=== PATIENT | female | born 1995 | race Asian ===

== ENCOUNTER 2018-10-03 23:11 | Observation (INO) | payer OTHER ==
[~2018-10-03] VITALS: Ht 142.2 cm; Wt 52.2 kg
[2018-10-04 00:17] VITALS: BP 111/62
[2018-10-05] MEDS ORDERED: PREN1TAB80 PO (09:57)
== END 2018-10-04 01:40 | disposition home or self-care (01) ==
LOC: 4S 23:11
PROVIDERS: ADMIT Obstetrics & Gynecology; ATTEND Obstetrics & Gynecology
DX: O46.93 Antepartum hemorrhage, unspecified, third trimester (principal); O48.0 Post-term pregnancy; Z3A.40 40 weeks gestation of pregnancy
CPT/HCPCS: 81002; G0378 ×2

== ENCOUNTER 2018-10-05 09:05 | Inpatient (IN) | payer OTHER ==
[~2018-10-05] VITALS: Ht 144.8 cm; Wt 52.2 kg
[2018-10-05] MEDS ORDERED: RINGERS SOLUTION,LACTATED 1,000 ML IV PRN (09:14)
[2018-10-05] MEDS ORDERED: OXYTOCIN 30 UNITS/LACT RINGERS 500 ML IV ONE (09:14)
[2018-10-05] MEDS ORDERED: RINGERS SOLUTION,LACTATED 1,000 ML IV SCH (09:14)
[2018-10-05] MEDS ORDERED: CITRIC ACID/SODIUM CITRATE 30 ML SOLUTION UDCUP PO PRN (09:15)
[2018-10-05] MEDS ORDERED: LIDOCAINE/PF 1% 30 ML VIAL INJ PRN (09:15)
[2018-10-05] MEDS ORDERED: FentaNYL CITRATE-PF 100 MCG/2 ML VIAL IVP PRN (09:15)
[2018-10-05] MEDS ORDERED: METOCLOPRAMIDE HCL 5 MG/ML 2 ML VIAL IVP PRN (09:15)
[2018-10-05] MEDS ORDERED: PREN1TAB80 PO (09:57)
[2018-10-05] MEDS ORDERED: FentaNYL CITRATE-PF 100 MCG/2 ML VIAL ONE (10:19)
[2018-10-05] MEDS ORDERED: MIDAZOLAM HCL 2 MG/2 ML VIAL ONE (10:19)
[2018-10-05] MEDS ORDERED: MORPHINE SULFATE/PF 1 MG/ML 10 ML AMP ONE (10:20)
[2018-10-05] MEDS ORDERED: BUPIVACAINE HCL/DEX-WATER/PF 0.75% 2 ML AMP ONE (10:20)
[2018-10-05] MEDS ORDERED: KETOROLAC TROMETHAMINE 30 MG/ML VIAL ONE (10:20)
[2018-10-05] MEDS ORDERED: ONDANSETRON HCL 4 MG/2 ML VIAL ONE (10:20)
[2018-10-05] MEDS ORDERED: DEXAMETHASONE SOD PHOS 4 MG/ML VIAL ONE (10:20)
[2018-10-05 10:29] LABS: HEMATOCRIT 34.4 % (36-46); HEMOGLOBIN 11.4 g/dL (12.0-16.0); MEAN CORPUSCULAR HEMOGLOBIN 30.6 pg (26.0-34.0); MEAN CORPUSCULAR HGB CONC 33.3 G/dL (31.0-37.0); MEAN CORPUSCULAR VOLUME 92 fL (80-100); PLATELET COUNT (AUTO) 206 K/uL (150-450); RED BLOOD CELL COUNT(AUTO) 3.74 MIL/uL (4.00-5.20); RED CELL DISTRIBUTION WIDTH 15.6 % (11.5-14.5)
[2018-10-05 10:39] LABS: INR 0.9 (0.9-1.1); PROTHROMBIN TIME 9.3 SEC (9.4-11.6)
[2018-10-05 10:54] LABS: BAND NEUTROPHILS % (MANUAL) 15 % (0-5); LYMPHOCYTES % (MANUAL) 21 % (22-44); MONOCYTES % (MANUAL) 4 % (2-9); SEGMENTED NEUTROPHILS % 60 % (40-70)
[2018-10-05] MEDS ORDERED: METHYLERGONOVINE MALEATE 0.2 MG/ML VIAL IVP ONE (11:05)
[2018-10-05] MEDS ORDERED: GENTAMICIN 80 MG/NACL ISO-OSM 50 ML IV SCH (11:15)
[2018-10-05] MEDS ORDERED: METHYLERGONOVINE MALEATE 0.2 MG/ML VIAL ONE (11:16)
[2018-10-05] MEDS ORDERED: ONDANSETRON HCL 4 MG/2 ML VIAL IVP PRN ×2 (11:30→20:30)
[2018-10-05] MEDS ORDERED: DiphenhydrAMINE HCL 50 MG/ML VIAL IVP PRN ×2 (11:30→20:30)
[2018-10-05] MEDS ORDERED: OxyCODONE HCL/ACETAMINOPHEN 5-325 MG TABLET PO PRN ×2 (11:30→20:30)
[2018-10-05] MEDS ORDERED: MEPERIDINE-PF 25 MG/ML VIAL IVP PRN (11:30)
[2018-10-05] MEDS ORDERED: NALOXONE HCL 0.4 MG/ML VIAL IVP PRN ×2 (11:30→20:30)
[2018-10-05] MEDS ORDERED: HYDROmorphone 2 MG/ML SYRINGE IVP PRN (11:30)
[2018-10-05] MEDS ORDERED: ACETAMINOPHEN/CODEINE 300-30 MG TABLET PO PRN (11:45)
[2018-10-05] MEDS ORDERED: LANOLIN 7 GM OINTMENT TP PRN (11:45)
[2018-10-05] MEDS ORDERED: ACETAMINOPHEN 1000 MG/ISO-OSM 100 ML IV ONE ×2 (11:47→12:00)
[2018-10-05] MEDS ORDERED: RINGERS SOLUTION,LACTATED 1,000 ML IV ONE (11:48)
[2018-10-05] MEDS: AMPICILLIN SODIUM 2 GM/NS 100 ML IV SCH ×2 (11:59→18:08)
[2018-10-05] MEDS ORDERED: KETOROLAC TROMETHAMINE 30 MG/ML VIAL IVP SCH (12:00)
[2018-10-05] MEDS ORDERED: GENTAMICIN 120 MG/NACL ISO-OSM 100 ML IV ONE (12:30)
[2018-10-05] MEDS ORDERED: *CLINICAL-GENTAMICIN DOSING CLINICAL ONE (14:30)
[2018-10-05] MEDS: DEXTROSE 5%-0.45% SODIUM CHL 1,000 ML IV SCH ×2 (17:47→22:27)
[2018-10-05] MEDS ORDERED: OXYGEN THERAPY IH SCH ×3 (20:00)
[2018-10-05] MEDS: GENTAMICIN 100 MG/NACL ISO-OSM 50 ML IV SCH (21:27)
[2018-10-06] MEDS: AMPICILLIN SODIUM 2 GM/NS 100 ML IV SCH ×3 (00:11→11:49)
[2018-10-06] MEDS: KETOROLAC TROMETHAMINE 30 MG/ML VIAL IVP SCH ×2 (00:42→05:59)
[2018-10-06] MEDS: DEXTROSE 5%-0.45% SODIUM CHL 1,000 ML IV SCH ×2 (02:58→08:40)
[2018-10-06] MEDS ORDERED: IBUPROFEN 800 MG TABLET PO SCH (05:00)
[2018-10-06] MEDS: GENTAMICIN 100 MG/NACL ISO-OSM 50 ML IV SCH ×3 (05:16→21:45)
[2018-10-06 05:36] LABS: MEAN CORPUSCULAR HEMOGLOBIN 30.9 pg (26.0-34.0); MEAN CORPUSCULAR HGB CONC 32.8 G/dL (31.0-37.0); MEAN CORPUSCULAR VOLUME 94 fL (80-100); PLATELET COUNT (AUTO)-OB 177 K/uL (150-450); RED BLOOD CELL COUNT(AUTO) 2.67 MIL/uL (4.00-5.20); RED CELL DISTRIBUTION WIDTH 15.5 % (11.5-14.5)
[2018-10-06 05:53] LABS: ANION GAP 7 mmol/L (8-16); CALCIUM, TOTAL 8.3 mg/dL (8.8-10.5); CARBON DIOXIDE 22 mmol/L (22-29); CHLORIDE 108 mmol/L (98-107); CREATININE 0.61 mg/dL (0.60-1.30); GLOMERULAR FILTR. RATE CALC > 60 mL/min (>60); GLUCOSE,RANDOM 146 mg/dL (70-110); POTASSIUM 3.7 mmol/L (3.5-5.1); SODIUM SERUM 137 mmol/L (136-145); UREA NITROGEN, BLOOD 3 mg/dL (7-18)
[2018-10-06 06:22] LABS: HEMOGLOBIN 8.3 g/dL (12.0-16.0)
[2018-10-06 06:23] LABS: HEMATOCRIT 25.1 % (36-46)
[2018-10-06] MEDS ORDERED: OXYGEN THERAPY IH SCH (08:00)
[2018-10-06] MEDS: MAGNESIUM HYDROXIDE SUSPENSION 30 ML UDCUP PO SCH ×2 (08:42→20:59)
[2018-10-06] MEDS ORDERED: SOD FERRIC GLUC COMPLX/SUCROSE 125 MG in SODIUM CHLORIDE 0.9% 100 ML IV SCH (09:00)
[2018-10-06 09:48] LABS: BAND NEUTROPHILS % (MANUAL) 35 % (0-5); LYMPHOCYTES % (MANUAL) 12 % (22-44); MONOCYTES % (MANUAL) 1 % (2-9); SEGMENTED NEUTROPHILS % 52 % (40-70)
[2018-10-06] MEDS ORDERED: IBUPROFEN 600 MG TABLET PO SCH (12:00)
[2018-10-06] MEDS: IBUPROFEN 800 MG TABLET PO SCH ×2 (12:20→18:18)
[2018-10-06] MEDS: ACETAMINOPHEN/CODEINE 300-30 MG TABLET PO PRN (22:42)
[2018-10-07] MEDS: IBUPROFEN 800 MG TABLET PO SCH ×4 (00:31→20:59)
[2018-10-07 05:31] LABS: BASOPHILS % (AUTO) 0.2 % (0.0-2.0); EOSINOPHILS % (AUTO) 0.4 % (1.0-6.0); HEMOGLOBIN 8.6 g/dL (12.0-16.0); LYMPHOCYTES # (AUTO) 1.8 K/uL (1.0-4.8); LYMPHOCYTES % (AUTO) 12.8 % (22.0-44.0); MEAN CORPUSCULAR HEMOGLOBIN 30.8 pg (26.0-34.0); MEAN CORPUSCULAR HGB CONC 32.9 G/dL (31.0-37.0); MEAN CORPUSCULAR VOLUME 93 fL (80-100); MONOCYTES # (AUTO) 0.4 K/uL (0.1-1.0); MONOCYTES % (AUTO) 2.7 % (2.0-9.0); NEUTROPHILS # (AUTO) 11.5 K/uL (1.8-7.7); NEUTROPHILS % (AUTO) 83.9 % (40.0-70.0); PLATELET COUNT (AUTO)-OB 201 K/uL (150-450); RED BLOOD CELL COUNT(AUTO) 2.78 MIL/uL (4.00-5.20); RED CELL DISTRIBUTION WIDTH 15.8 % (11.5-14.5)
[2018-10-07] MEDS ORDERED: METOCLOPRAMIDE HCL 5 MG/ML 2 ML VIAL IVP ONE (05:47)
[2018-10-07] MEDS ORDERED: LIDOCAINE/PF 2% 5 ML VIAL IM ONE (05:47)
[2018-10-07] MEDS ORDERED: ONDANSETRON HCL 4 MG/2 ML VIAL IVP ONE (05:47)
[2018-10-07] MEDS ORDERED: EPHEDrine SULFATE 50 MG/ML VIAL IM ONE (05:47)
[2018-10-07] MEDS ORDERED: OXYTOCIN 10 UNITS/ML VIAL IM ONE (05:47)
[2018-10-07] MEDS ORDERED: ESMOLOL HCL 10 MG/ML 10 ML VIAL IVP ONE (05:47)
[2018-10-07] MEDS: MAGNESIUM HYDROXIDE SUSPENSION 30 ML UDCUP PO SCH (09:15)
[2018-10-07] MEDS: SOD FERRIC GLUC COMPLX/SUCROSE 125 MG in SODIUM CHLORIDE 0.9% 100 ML IV SCH (10:26)
[2018-10-07] MEDS: ACETAMINOPHEN/CODEINE 300-30 MG TABLET PO PRN ×2 (14:00→17:11)
[2018-10-08] MEDS: IBUPROFEN 800 MG TABLET PO SCH ×4 (03:08→17:50)
[2018-10-08] MEDS: SOD FERRIC GLUC COMPLX/SUCROSE 125 MG in SODIUM CHLORIDE 0.9% 100 ML IV SCH (10:08)
[2018-10-08] MEDS ORDERED: SODIUM CHLORIDE 0.9% 100 ML ONE (10:13)
[2018-10-08] MEDS ORDERED: IBUP-2071 PO (16:09)
[2018-10-08] MEDS ORDERED: DSS100 PO (16:11)
[2018-10-09] MEDS: IBUPROFEN 800 MG TABLET PO SCH ×3 (00:26→12:13)
[2018-10-09 05:53] LABS: BASOPHILS % (AUTO) 0.2 % (0.0-2.0); EOSINOPHILS % (AUTO) 1.7 % (1.0-6.0); HEMATOCRIT 30.1 % (36-46); LYMPHOCYTES # (AUTO) 1.7 K/uL (1.0-4.8); LYMPHOCYTES % (AUTO) 16.2 % (22.0-44.0); MEAN CORPUSCULAR HEMOGLOBIN 30.8 pg (26.0-34.0); MEAN CORPUSCULAR HGB CONC 33.1 G/dL (31.0-37.0); MEAN CORPUSCULAR VOLUME 93 fL (80-100); MONOCYTES # (AUTO) 0.7 K/uL (0.1-1.0); MONOCYTES % (AUTO) 6.1 % (2.0-9.0); NEUTROPHILS # (AUTO) 8.1 K/uL (1.8-7.7); NEUTROPHILS % (AUTO) 75.8 % (40.0-70.0); PLATELET COUNT (AUTO)-OB 303 K/uL (150-450); RED BLOOD CELL COUNT(AUTO) 3.24 MIL/uL (4.00-5.20); RED CELL DISTRIBUTION WIDTH 15.5 % (11.5-14.5)
[2018-10-09] MEDS: SOD FERRIC GLUC COMPLX/SUCROSE 125 MG in SODIUM CHLORIDE 0.9% 100 ML IV SCH (09:16)
[2018-10-09] MEDS ORDERED: FERR-89 PO (10:41)
== END 2018-10-09 12:30 | disposition home or self-care (01) | DRG 540 ==
LOC: 4S 09:05 → OBSVTOIN 09:05 → 4S 14:00
PROVIDERS: ADMIT Obstetrics & Gynecology; ATTEND Obstetrics & Gynecology
PROC: 10D00Z1 Extraction of Products of Conception, Low, Open Approach (ICD-10-PCS; principal; 2018-10-05)
DX: O41.1230 Chorioamnionitis, third trimester, not applicable or unspecified (principal); O75.2 Pyrexia during labor, not elsewhere classified; O67.8 Other intrapartum hemorrhage; O69.0XX0 Labor and delivery complicated by prolapse of cord, not applicable or unspecified; O76 Abnormality in fetal heart rate and rhythm complicating labor and delivery; Z37.0 Single live birth; Z3A.40 40 weeks gestation of pregnancy
CPT/HCPCS: 85362; 86850; 86900; 86901; 87070; 87205; 88307; J0131; J0290; J0690; J1100; J1580; J1885; J2210; J2250; J2405; J2590; J2765; J2916; J3010; J3490; J7050; J7120